=== PATIENT | female | born 1985 | race Caucasian/White ===

== ENCOUNTER → 2019-04-18 | Outpatient (CLI) | payer OTHER | END | disposition home or self-care (01) | LOC: CANPRESDC → RD 11:40 → EDSTATUS 04-22 09:00 → OR 04-22 09:00 → RD 04-22 09:00 | DX: K80.80 Other cholelithiasis without obstruction (principal) ==

== ENCOUNTER 2019-09-24 06:54 | Day surgery (SDC) | payer OTHER, SELFPAY ==
[~2019-09-24] VITALS: Ht 170.2 cm; Wt 86.6 kg
[2019-09-24 07:19] VITALS: BP 128/76
[2019-09-24 14:26] VITALS: BP 114/80
== END 2019-09-24 14:20 | disposition home or self-care (01) ==
LOC: DS 06:54 → OR 09:00 → DS 14:20
PROVIDERS: ATTEND Surgery
DX: K80.10 Calculus of gallbladder with chronic cholecystitis without obstruction (principal); E66.9 Obesity, unspecified; Z68.30 Body mass index [BMI] 30.0-30.9, adult; Z11.59 Encounter for screening for other viral diseases
CPT/HCPCS: J0330; J0690; J1170; J2175; J2250; J2405; J2704; J3010; J3490; J7030; J7120; U0003-CS